=== PATIENT | female | born 1990 | race Caucasian/White ===

== ENCOUNTER 2020-09-10 07:53 | Emergency (ER) | payer OTHER ==
[~2020-09-10] VITALS: Ht 157.5 cm; Wt 108.9 kg
[~2020-09-10 07:53] MED LIST: CIPRO500 MG PO; CIPROFLOXACIN500 MG PO; DAYSEE 0.15-0.1 EACH PO; DILAUDID2 MG PO; FLOMAX0.4 MG PO; KETOROLAC TROME10 MG PO; NEOMYCIN-POLYMY10 M1 OTIC; NORCO 5-325 TA1 EACH PO; PERCOCET 5-3251 EACH PO; TORADOL; TRAMADOL HCL50 MG PO; VITAMIN D250000 UNIT PO
== END 2020-09-10 08:52 | disposition home or self-care (01) ==
LOC: ED 07:53
DX: S93.402A Sprain of unspecified ligament of left ankle, initial encounter (principal); X50.1XXA Overexertion from prolonged static or awkward postures, initial encounter
CPT/HCPCS: 73610; 99283-25; A9270

== ENCOUNTER 2023-01-26 07:56 | Day surgery (SDC) | payer OTHER ==
[2023-01-20 15:33] VITALS: BP 137/87
[~2023-01-26] VITALS: Ht 157.5 cm; Wt 118.2 kg
--- NOTE | ~2023-01-26 | OR ---
[facility] [address] [place], [place] [address] [employer] DATE OF OPERATION: 01/26/2023 SURGEON: Best Rooney MD PREOPERATIVE DIAGNOSES: Retained ventilation tube in the middle ear, left ear with chronic serous otitis media. POSTOPERATIVE DIAGNOSES: Retained ventilation tube in the middle ear, left ear with chronic serous otitis media. PROCEDURE: Removal of left ear foreign body and placement of a ventilation tube. ANESTHESIA: General LMA, LENS ENGRAVER, Kerri. PREOPERATIVE HISTORY: Chiara is a 32-year-old young lady with a long history of ear problems. She had multiple sets of ear tubes placed. The most recently was 10 years ago. The right ear tube has extruded, left ear tube has fallen into the middle ear space and she has persistent effusion, taken to the operating for the above-mentioned procedures. OPERATIVE PROCEDURE AND FINDINGS: After informed consent, the patient was taken to the operating room, placed in supine position where general LMA anesthesia was induced. The patient and procedure were verified. Left ear was examined with the operating microscope. T-Tube was in the middle ear space. Intact eardrum. An incision was made in the anterior ear drum and the T-tube removed atraumatically, scant middle ear effusion suctioned from the middle ear space. T-Tube was then placed in the myringotomy site. Ofloxacin ophthalmic drops applied in the ear canal, cotton ball the meatus. The patient tolerated the procedure well, was awakened, extubated, transported to recovery room in good condition. No complications. BLOOD LOSS: Minimal. SPECIMEN: None. DRAINS: PATIENT NAME: CHIARA WARD OPERATIVE REPORT DATE OF : [birth year] REPORT #: [id number] PHYSICIAN: BEST ROONEY MD PCP: TREASURE MEJIA PAC REPORT IS CONFIDENTIAL AND NOT TO BE RELEASED WITHOUT AUTHORIZATION [address] [place], [place] [address] [facility] None. Best Rooney MD GC/MARIELY /[id number] Copies: ~ PATIENT NAME: CHIARA WARD OPERATIVE REPORT DATE OF : [birth year] REPORT #: [id number] PHYSICIAN: BEST ROONEY MD PCP: TREASURE MEJIA PAC REPORT IS CONFIDENTIAL AND NOT TO BE RELEASED WITHOUT AUTHORIZATION
[~2023-01-26 07:56] MED LIST changes: +FLONASE ALLERG9.9 ML NAS; +VITAMIN C1000 MG PO; +VITAMIN D3125 MC1 PO; +ZYRTEC10 MG PO
[2023-01-26 08:17] VITALS: BP 142/91
[2023-01-26] MEDS ORDERED: PRENATA CHEWAB1 EACH PO (08:19)
--- NOTE | 2023-01-26 10:06 | NUR ---
01/26/23 1006 Yessica Archibald 0990-PATIENT ARRIVED TO PACU ON 6L MASK RR EVEN. PATIENT REACTIVE TO VERBAL STIMULI SLIGHTLY OPENING EYES REMAINS VERY DROWSY DOZES BACK TO SLEEP. IVF INFUSING. TYLENOL IV COMPLETED. SR. NO DRAINAGE TO LEFT EAR. 1006-PATIENT AROUSING OPENING EYES DENIES PAIN OR NAUSEA. PLACED ON RA 100% RR EVEN. HOB ELEVATED
[2023-01-26 10:20] VITALS: BP 143/83
--- NOTE | 2023-01-26 11:03 | NUR ---
1020: PT RETURNS TO UNIT VIA STRETCHER FROM PACU. AWAKE AND ALERT ON ARRIVAL. VSS, RESP EVEN AND UNLABORED. DENIES PAIN AND NAUSEA. ICE WATER AND CRACKERS PROVIDED. COTTON BALL TO LEFT EAR. POC DISCUSSED AND PT AGREEABLE AT THIS TIME. CALL LIGHT WITHIN REACH. MOTHER VISITS WITH PT AT THE BEDSIDE 1040: PT WITH CALL FOR THIS RN. REPORTS URGE TO VOID. DANGLES AT THE BEDSIDE. YAEL WELL. DENIES DIZZINESS AND SOB. AMULATES TO BR WITH STANDBY FROM THIS RN, STEADY GAIT. SUCCESSFUL FIRST POST OP VOID, 400MLS. BACK TO ROOM 4. DENIES FURTHER NEEDS
[2023-01-26 11:20] VITALS: BP 132/62
--- NOTE | 2023-01-26 11:55 | NUR ---
1125: PT ALERT AND VISITS WITH MOTHER AT THE BEDSIDE. VSS, RESP EVEN AND UNLABORED. CONTS TO DENY PAIN AND NAUSEA. COTTON REMAINS IN PLACE AT LEFT EAR CANAL. SL REMOVED WITH CATH TIP INTACT AND PRESSURE APPLIED TO SITE. PT TO DRESS INDEPENDENTLY FOR DC. 1145: DC INSTRUCTIONS PROVIDED AND DISCUSSED. PT VOICES UNDERSTANDING AND DENIES QUESTIONS AND CONCERNS. WHEELED OFF OF UNIT BY THIS RN. TRANSFERS INTO VEHICLE INDEPENDENTLY AND APPROPRIATELY. NO PHYSICAL S/S OF DISTRESS
== END 2023-01-26 11:40 | disposition home or self-care (01) ==
LOC: DS 07:56 → OPS 07:56
PROVIDERS: ATTEND Otolaryngology
PROC: 099670Z Drainage of Left Middle Ear with Drainage Device, Via Natural or Artificial Opening (ICD-10-PCS; principal; 2023-01-26 09:30)
DX: H65.22 Chronic serous otitis media, left ear (principal)
CPT/HCPCS: 00126; J0131; J1100; J2001; J2250; J2405; J2704; J3490; J7121